=== PATIENT | female | born 1960 | race Two or more races ===

== ENCOUNTER 2024-08-31 14:01 | Inpatient (IN) | payer MEDICAID, OTHER ==
[~2024-08-31] VITALS: Ht 157.5 cm; Wt 88.7 kg
[2024-08-31 16:08] LABS: Basophils # (auto) 0 10 ^3/uL (0-0.2); Basophils % (auto) 0.6 % (0.0-2.0); Eosinophils # (auto) 0.1 10 ^3/uL (0-0.8); Eosinophils % (auto) 1.3 % (0.0-7.0); Hematocrit 25.7 % (36.0-46.0); Hemoglobin 8.8 g/dL (12.2-16.2); Lymphocytes # (auto) 0.5 10 ^3/uL (0.4-5.4); Mean Corpuscular Hemoglobin 35.7 pg (28.0-32.0); Mean Corpuscular Hgb Conc. 34.1 g/dL (32.0-36.0); Mean Corpuscular Volume 104.8 fL (80.0-100.0); Monocytes # (auto) 0.3 10 ^3/uL (0-1.3); Monocytes % (auto) 8.4 % (0.0-12.0); Neutrophils # (auto) 3.1 10 ^3/uL (1.6-8.6); Neutrophils % (auto) 77.7 % (37.0-80.0); Nucleated Red Blood Cells % 0.1 %; Platelet Count (auto) 100 10^3/uL (140-450); Red Blood Cells 2.45 10^6/uL (4.0-5.20); Red Cell Distribution Width 15.9 % (11.8-14.3)
[2024-08-31 16:19] LABS: Chloride 100 mmol/L (98-107); Potassium 3.9 mmol/L (3.5-5.1); Sodium 137 mmol/L (136-145)
[2024-08-31 16:20] LABS: Anion Gap 7 (5-15); Carbon Dioxide 30 mmol/L (20-31)
[2024-08-31 16:21] LABS: Calcium 8.9 mg/dL (8.7-10.4)
[2024-08-31 16:25] LABS: Glucose 105 mg/dL (74-106)
[2024-08-31 16:26] LABS: BUN/Creatinine Ratio 3.8 (10.0-20.0); Blood Urea Nitrogen 19 mg/dL (9-23)
[2024-08-31] MEDS: levoFLOXacin 500MG 100 ML IV ONE (18:24)
[2024-08-31] MEDS: methylPREDNISolone SOD SUCC 125 MG/2 ML VL IV ONE (18:24)
[2024-08-31 19:12] VITALS: PULSE 124; RESP 15; O2SAT 94
[2024-08-31] MEDS ORDERED: DEXTROSE (50%) 50ML SYRG IV PRN (20:45)
[2024-08-31] MEDS ORDERED: NITROGLYCERIN 0.4 MG SL TAB SL PRN (20:45)
[2024-08-31] MEDS ORDERED: ONDANSETRON HCL 4 MG/2 ML VIAL IV PRN (20:45)
[2024-08-31] MEDS ORDERED: MORPHINE SULFATE INJ 2 MG/ml SYRG IV PRN (20:45)
[2024-08-31 21:02] VITALS: BP 123/45; PULSE 121; RESP 16; O2SAT 95
[2024-08-31] MEDS: ATORVASTATIN 20 MG TAB PO SCH (22:00)
[2024-08-31] MEDS: ACCU-CHEK COMFORT CURVE STRIP VI SCH (22:00)
[2024-08-31] MEDS: CARVEDILOL 12.5 MG TAB PO SCH (22:00)
[2024-08-31] MEDS: TICAGRELOR 90 MG TAB PO SCH (22:00)
[2024-08-31] MEDS: GABAPENTIN 300 MG CAP PO SCH (22:00)
[2024-08-31] MEDS: FUROSEMIDE 40 MG/4 ML VIAL IV ONE (23:12)
[2024-08-31] MEDS: InsuLIN REG 1unit/0.01ml Soln (100units/ml) SC SCH (23:17)
[2024-09-01] VITALS (17 sets, daily range): BP systolic 97–158; BP diastolic 46–81; PULSE 59–98; RESP 17–24; TEMP 97.7–98.4; O2SAT 92–99
[2024-09-01] MEDS: guaiFENesin-DM 100/10mg/5ml SYR PO PRN (01:00)
[2024-09-01] MEDS: THROAT LOZENGES(CEPASTAT) MT PRN (01:01)
[2024-09-01 01:09] LABS: COVID19 ANTIGEN SOFIA FIA NEGATIVE (NEGATIVE)
[2024-09-01] MEDS: ALBUTEROL SULF 2.5 MG/0.5ML(0.5%) NEB SOLN NEB PRN (01:24)
[2024-09-01] MEDS: ACETAMINOPHEN 325 MG TAB PO PRN (02:53)
[2024-09-01] MEDS: NIFEdipine ER 30 MG TAB PO SCH (06:27)
[2024-09-01 06:31] LABS: Basophils # (auto) 0 10 ^3/uL (0-0.2); Basophils % (auto) 0.3 % (0.0-2.0); Eosinophils # (auto) 0 10 ^3/uL (0-0.8); Lymphocytes # (auto) 0.3 10 ^3/uL (0.4-5.4); Monocytes # (auto) 0.2 10 ^3/uL (0-1.3); Neutrophils # (auto) 2.5 10 ^3/uL (1.6-8.6); Platelet Count (auto) 85 10^3/uL (140-450)
[2024-09-01 06:35] LABS: Hematocrit 27.2 % (36.0-46.0); Hemoglobin 9.2 g/dL (12.2-16.2); Lymphocytes % (auto) 11.3 % (10.0-50.0); Mean Corpuscular Hemoglobin 35.5 pg (28.0-32.0); Mean Corpuscular Hgb Conc. 34.1 g/dL (32.0-36.0); Mean Corpuscular Volume 104.1 fL (80.0-100.0); Monocytes % (auto) 6.4 % (0.0-12.0); Nucleated Red Blood Cells % 0.2 %; Red Blood Cells 2.61 10^6/uL (4.0-5.20); Red Cell Distribution Width 15.6 % (11.8-14.3)
[2024-09-01 06:49] LABS: Chloride 98 mmol/L (98-107); Potassium 4.6 mmol/L (3.5-5.1); Sodium 137 mmol/L (136-145)
[2024-09-01 06:50] LABS: Anion Gap 10 (5-15); Calcium 7.8 mg/dL (8.7-10.4); Carbon Dioxide 29 mmol/L (20-31)
[2024-09-01 06:55] LABS: BUN/Creatinine Ratio 5.4 (10.0-20.0); Glucose 157 mg/dL (74-106)
[2024-09-01 06:56] LABS: Blood Urea Nitrogen 32 mg/dL (9-23)
[2024-09-01] MEDS: cefTRIAXone 1GM/50ML D5W 50 ML IV SCH (09:13)
[2024-09-01] MEDS: HYDROcodone-ACET 5/325MG TAB PO PRN (09:13)
[2024-09-01] MEDS ORDERED: ASPirin 81 mg TAB PO SCH (10:00)
[2024-09-01] MEDS: AZITHROMYCIN 500MG/ 250ML 250 ML IV SCH (12:02)
[2024-09-01] MEDS: ASPirin 81 mg TAB PO SCH (12:02)
[2024-09-01] MEDS: ALBUMIN 25% 50 ML IV ONE (14:26)
[2024-09-01] MEDS: FUROSEMIDE 40 MG/4 ML VIAL IV ONE (14:30)
[2024-09-01] MEDS: FUROSEMIDE 40 MG/4 ML VIAL IV SCH (18:00)
[2024-09-01] MEDS: ATORVASTATIN 20 MG TAB PO SCH (21:41)
[2024-09-01] MEDS: APIXABAN 5 MG TAB PO SCH (21:42)
[2024-09-01] MEDS: hydrALAZINE HCL 25 MG TAB PO SCH (21:44)
[2024-09-01] MEDS: CARVEDILOL 3.125 MG TAB PO SCH (21:45)
[2024-09-01] MEDS ORDERED: SACUBITRIL-VALSARTAN 24mg/26mg TAB PO SCH (22:00)
[2024-09-02] VITALS (11 sets, daily range): BP systolic 112–144; BP diastolic 43–74; PULSE 18–91; RESP 17–20; TEMP 98–99.2; O2SAT 83–100
[2024-09-02 06:41] LABS: Basophils # (auto) 0 10 ^3/uL (0-0.2); Eosinophils # (auto) 0 10 ^3/uL (0-0.8); Eosinophils % (auto) 0.6 % (0.0-7.0); Hemoglobin 8.3 g/dL (12.2-16.2); Lymphocytes # (auto) 0.7 10 ^3/uL (0.4-5.4); Lymphocytes % (auto) 15.7 % (10.0-50.0); Monocytes # (auto) 0.3 10 ^3/uL (0-1.3); Neutrophils # (auto) 3.3 10 ^3/uL (1.6-8.6); Neutrophils % (auto) 75.7 % (37.0-80.0); Nucleated Red Blood Cells % 0.2 %
[2024-09-02 06:47] LABS: Basophils % (auto) 0.6 % (0.0-2.0); Hematocrit 23.9 % (36.0-46.0); Mean Corpuscular Hemoglobin 36.4 pg (28.0-32.0); Mean Corpuscular Hgb Conc. 34.7 g/dL (32.0-36.0); Mean Corpuscular Volume 105.1 fL (80.0-100.0); Monocytes % (auto) 7.4 % (0.0-12.0); Platelet Count (auto) 84 10^3/uL (140-450); Red Blood Cells 2.28 10^6/uL (4.0-5.20); White Blood Cell 4.4 10^3/uL (4.4-10.8)
[2024-09-02 06:53] LABS: Anion Gap 10 (5-15); Carbon Dioxide 28 mmol/L (20-31); Chloride 97 mmol/L (98-107); Potassium 5.4 mmol/L (3.5-5.1); Sodium 135 mmol/L (136-145)
[2024-09-02 06:54] LABS: Calcium 8.7 mg/dL (8.7-10.4)
[2024-09-02 06:59] LABS: BUN/Creatinine Ratio 6.4 (10.0-20.0); Glucose 94 mg/dL (74-106); Triglycerides 107 mg/dL (< 150)
[2024-09-02 07:00] LABS: Blood Urea Nitrogen 48 mg/dL (9-23); LDL Cholesterol 37 mg/dL (< 100)
[2024-09-02] MEDS: SODIUM CHL 0.9% 1000 ML BAG XX ONE (07:00)
[2024-09-02 07:01] LABS: Cholesterol 80 mg/dL (< 200); HDL Cholesterol 22 mg/dL (40-59)
[2024-09-02 07:02] LABS: % Iron Saturation 21.3 % (15-50)
[2024-09-02 08:07] LABS: Erythrocyte Sedimentation Rate 58 mm/hr (0-20)
[2024-09-02] MEDS: IOHEXOL 300 MG/ML 100ML BOTTLE IJ ONE (08:41)
[2024-09-02] MEDS ORDERED: EMPAGLIFLOZIN 10 MG TAB PO SCH (10:00)
[2024-09-02] MEDS: ISOSORBIDE MONONITRATE ER 60 MG TAB PO SCH (13:07)
[2024-09-02] MEDS ORDERED: LOPERAMIDE HCL 2 MG CAP/TAB PO PRN (15:45)
[2024-09-02] MEDS: FUROSEMIDE 40 MG/4 ML VIAL IV SCH (19:29)
[2024-09-02 20:33] LABS: Chloride 97 mmol/L (98-107); Potassium 3.7 mmol/L (3.5-5.1); Sodium 137 mmol/L (136-145)
[2024-09-02 20:34] LABS: Anion Gap 10 (5-15); Calcium 9.5 mg/dL (8.7-10.4); Carbon Dioxide 30 mmol/L (20-31)
[2024-09-02 20:39] LABS: Glucose 127 mg/dL (74-106)
[2024-09-02 21:18] LABS: Blood Urea Nitrogen 26 mg/dL (9-23)
[2024-09-02] MEDS: EPOETIN ALFA-EPBX 4,000 UNIT/ML VIAL SC ONE (22:09)
[2024-09-03] VITALS (10 sets, daily range): BP systolic 97–156; BP diastolic 43–78; PULSE 51–79; RESP 16–20; TEMP 97.6–98.7; O2SAT 92–100
[2024-09-03 07:58] LABS: Basophils # (auto) 0 10 ^3/uL (0-0.2); Eosinophils # (auto) 0.1 10 ^3/uL (0-0.8); Lymphocytes # (auto) 0.5 10 ^3/uL (0.4-5.4); Platelet Count (auto) 86 10^3/uL (140-450)
[2024-09-03 08:03] LABS: Basophils % (auto) 0.5 % (0.0-2.0); Eosinophils % (auto) 1.8 % (0.0-7.0); Lymphocytes % (auto) 16.6 % (10.0-50.0); Mean Corpuscular Hemoglobin 36.5 pg (28.0-32.0); Mean Corpuscular Hgb Conc. 34.7 g/dL (32.0-36.0); Mean Corpuscular Volume 105.2 fL (80.0-100.0); Monocytes # (auto) 0.3 10 ^3/uL (0-1.3); Monocytes % (auto) 10.7 % (0.0-12.0); Neutrophils # (auto) 2.2 10 ^3/uL (1.6-8.6); Neutrophils % (auto) 70.4 % (37.0-80.0); Nucleated Red Blood Cells % 0.2 %; Red Blood Cells 2.19 10^6/uL (4.0-5.20); Red Cell Distribution Width 15.9 % (11.8-14.3); White Blood Cell 3.2 10^3/uL (4.4-10.8)
[2024-09-03] MEDS: CLOPIDOGREL BISULFATE 75 MG TAB PO SCH (09:46)
[2024-09-03] MEDS: OFLOXACIN OTIC(EAR) 0.3 % DROP 5ML EACH EAR SCH (10:00)
[2024-09-03] MEDS ORDERED: NEOMYCIN IR ONE (10:45)
[2024-09-03] MEDS ORDERED: [UNRECOGNIZED DRUG - OTHER] IR ONE (10:45)
[2024-09-03] MEDS: NEOMYCIN-POLYM-HC 1% OTIC(EAR) SOLN 10ML EACH EAR SCH (14:41)
[2024-09-04] VITALS (10 sets, daily range): BP systolic 121–192; BP diastolic 54–78; PULSE 66–95; RESP 16–20; TEMP 97.6–98.4; O2SAT 93–100
[2024-09-04] MEDS: EMPAGLIFLOZIN 10 MG TAB PO SCH (09:28)
[2024-09-04] MEDS: SODIUM CHL 0.9% 1000 ML BAG XX ONE (18:01)
[2024-09-04] MEDS: hydrALAZINE HCL 20 MG/ML VL IV STA (18:09)
[2024-09-04] MEDS: EPOETIN ALFA-EPBX 4,000 UNIT/ML VIAL SC ONE (22:55)
[2024-09-05] VITALS (9 sets, daily range): BP systolic 115–171; BP diastolic 52–70; PULSE 60–94; RESP 15–20; TEMP 97.2–98.1; O2SAT 94–100
[2024-09-05 05:32] LABS: Rapid Influenza A Negative (Negative); Rapid Influenza B Negative (Negative)
[2024-09-06 01:00] VITALS: BP 114/52; PULSE 70; RESP 20; O2SAT 99
[2024-09-06 05:00] VITALS: BP 140/59; PULSE 75; RESP 18; TEMP 97.5; O2SAT 100
[2024-09-06 07:24] LABS: Basophils # (auto) 0 10 ^3/uL (0-0.2); Eosinophils # (auto) 0.1 10 ^3/uL (0-0.8); Hemoglobin 8.5 g/dL (12.2-16.2); Lymphocytes # (auto) 0.5 10 ^3/uL (0.4-5.4); Platelet Count (auto) 100 10^3/uL (140-450); Red Cell Distribution Width 16.2 % (11.8-14.3); White Blood Cell 3.9 10^3/uL (4.4-10.8)
[2024-09-06 07:32] LABS: Basophils % (auto) 0.7 % (0.0-2.0); Hematocrit 25.1 % (36.0-46.0); Lymphocytes % (auto) 12.6 % (10.0-50.0); Mean Corpuscular Hemoglobin 35.9 pg (28.0-32.0); Mean Corpuscular Hgb Conc. 33.9 g/dL (32.0-36.0); Mean Corpuscular Volume 105.7 fL (80.0-100.0); Monocytes # (auto) 0.3 10 ^3/uL (0-1.3); Monocytes % (auto) 6.6 % (0.0-12.0); Neutrophils % (auto) 77.1 % (37.0-80.0); Red Blood Cells 2.38 10^6/uL (4.0-5.20)
[2024-09-06 07:33] LABS: Chloride 101 mmol/L (98-107); Potassium 4.9 mmol/L (3.5-5.1); Sodium 135 mmol/L (136-145)
[2024-09-06 07:34] LABS: Anion Gap 10 (5-15); Calcium 9.2 mg/dL (8.7-10.4); Carbon Dioxide 24 mmol/L (20-31)
[2024-09-06 07:39] LABS: BUN/Creatinine Ratio 6.2 (10.0-20.0); Blood Urea Nitrogen 42 mg/dL (9-23); Glucose 156 mg/dL (74-106)
[2024-09-06 08:00] VITALS: PULSE 71
[2024-09-06 08:54] LABS: Hepatitis B Surface Antigen Negative (Negative)
[2024-09-06 09:00] VITALS: BP 120/34; PULSE 17; RESP 17; TEMP 97.3; O2SAT 99
[2024-09-06 09:14] LABS: Hepatitis A Ab IgM Negative
[2024-09-06 09:15] LABS: Hepatitis B Core IgM Negative
[2024-09-06 09:20] LABS: Hepatitis C Antibody Reactive (Negative)
[2024-09-06 10:00] VITALS: O2SAT 99
[2024-09-06] MEDS ORDERED: CEFD300C2 PO (10:41)
[2024-09-06] MEDS ORDERED: ALBUAER3 IN (10:43)
[2024-09-06] MEDS: CHOLESTYRAMINE 4 GM POWDER PO ONE (10:45)
[2024-09-06] MEDS ORDERED: DIPHENOXYLATE W/ATROPINE 2.5 MG TAB PO PRN (10:45)
[2024-09-06 15:24] VITALS: BP 105/53; PULSE 70; RESP 17; TEMP 97.5; O2SAT 98
== END 2024-09-06 16:45 | disposition home or self-care (01) | DRG 133 ==
LOC: EDBD 14:01 → ER 14:14 → TELE 20:47 → TELE-EAST 23:47 → TELE-CENTR 09-05 15:02
PROVIDERS: ADMIT Internal Medicine; ATTEND Nurse Practitioner Acute Care
PROC: 5A1D70Z Performance of Urinary Filtration, Intermittent, Less than 6 Hours Per Day (ICD-10-PCS; principal; 2024-09-02)
PROC: 5A1D70Z Performance of Urinary Filtration, Intermittent, Less than 6 Hours Per Day (ICD-10-PCS; 2024-09-04)
DX: J96.01 Acute respiratory failure with hypoxia (principal); I21.A1 Myocardial infarction type 2; I50.23 Acute on chronic systolic (congestive) heart failure; J15.69 Pneumonia due to other Gram-negative bacteria; J15.9 Unspecified bacterial pneumonia; D63.1 Anemia in chronic kidney disease; N18.6 End stage renal disease; J44.0 Chronic obstructive pulmonary disease with (acute) lower respiratory infection; E11.22 Type 2 diabetes mellitus with diabetic chronic kidney disease; I34.81 Nonrheumatic mitral (valve) annulus calcification; I13.2 Hypertensive heart and chronic kidney disease with heart failure and with stage 5 chronic kidney disease, or end stage renal disease; I25.10 Atherosclerotic heart disease of native coronary artery without angina pectoris; I48.91 Unspecified atrial fibrillation; D50.9 Iron deficiency anemia, unspecified; Z20.822 Contact with and (suspected) exposure to COVID-19; E66.9 Obesity, unspecified; I34.0 Nonrheumatic mitral (valve) insufficiency; Z95.5 Presence of coronary angioplasty implant and graft; Z99.2 Dependence on renal dialysis; Z91.199 Patient's noncompliance with other medical treatment and regimen due to unspecified reason; Z79.82 Long term (current) use of aspirin; Z79.01 Long term (current) use of anticoagulants; Z68.34 Body mass index [BMI] 34.0-34.9, adult
CPT/HCPCS: 36415; 70450; 71045; 71260; 74177; 80048; 80061; 80074; 82962; 83036; 83540; 83550; 83735; 83880; 84443; 84484; 85025; 85379; 85652; 87426; 87493; 87804; 90935; 93005; 93306; 94640; 96365; 96375; 99291; G0378; J1815; J1956